=== PATIENT | female | born 1990 | race Caucasian/White ===

== ENCOUNTER 2020-02-07 13:29 | Emergency (ER) | payer MEDICAID, SELFPAY ==
[~2020-02-07] VITALS: Ht 152.4 cm; Wt 99.8 kg
[2020-02-07 13:35] VITALS: Ht 152.4 cm; Wt 99.8 kg
[2020-02-07 14:22] VITALS: BP 126/81
== END 2020-02-07 14:22 | disposition home or self-care (01) ==
LOC: ED 13:29
DX: K21.9 Gastro-esophageal reflux disease without esophagitis (principal); J30.2 Other seasonal allergic rhinitis

== ENCOUNTER 2020-08-09 19:07 | Emergency (ER) | payer MEDICAID ==
[~2020-08-09] VITALS: Ht 152.4 cm; Wt 95.7 kg
[2020-08-09 19:18] VITALS: Ht 152.4 cm; Wt 95.7 kg
[2020-08-09 20:48] LABS: RED CELL DISTRIBUTION WIDTH 13.2 % (11.5-14.5)
[2020-08-09 21:08] LABS: CALCIUM 8.7 mg/dL (8.5-10.1); CARBON DIOXIDE 25.6 mmol/L (21-32); CHLORIDE SERUM 104 mmol/L (98-107); CREATININE SERUM 0.7 mg/dL (0.6-1.0); GFR1 > 60 mL/min; GLUCOSE SERUM 100 mg/dL (74-106); POTASSIUM SERUM 3.8 mmol/L (3.5-5.1); SODIUM SERUM 138 mmol/L (136-145)
[2020-08-09 21:10] LABS: ALBUMIN 3.7 g/dL (3.4-5.0); ALKALINE PHOSPHATASE 70 U/L (46-116); ALT/SGPT 16 U/L (14-59); AST/SGOT 17 U/L (15-37); BILIRUBIN DIRECT 0.22 mg/dL (0.0-0.2); BILIRUBIN TOTAL 1.23 mg/dL (0.20-1.00); LIPASE 136 IU/L (73-393); TOTAL PROTEIN, SERUM 7.6 g/dL (6.4-8.2)
[2020-08-09 21:12] LABS: microscopic required? YES; urine erythrocyte NEGATIVE (NEGATIVE)
[2020-08-09 21:13] LABS: BASOPHIL % 1.1 % (0-2); PLATELET COUNT 235 x10^3mcL (130-400)
[2020-08-09 23:47] VITALS: BP 113/83
== END 2020-08-09 23:47 | disposition home or self-care (01) ==
LOC: ED 19:07
PROVIDERS: Emergency Medicine
DX: R10.11 Right upper quadrant pain (principal); I10 Essential (primary) hypertension
CPT/HCPCS: Q0092